=== PATIENT | female | born 1955 | race Caucasian/White ===

== ENCOUNTER 2016-08-14 10:45 | Emergency (ER) | payer SELFPAY ==
[~2016-08-14] VITALS: Ht 175.3 cm; Wt 63.0 kg
[~2016-08-14 10:45] MED LIST: ASP81TEC PO; CEPH-38 PO; CHOLECALCIFEROL PO; DICL50TA3 PO; FISH OIL PO; LEVO500T69 PO; LVT.025T PO; MEPE50TA PO; MULT-608 PO; ONDAN4ODT PO; PANT40SU PO
[2016-08-14] MEDS ORDERED: ASPIRIN 81 MG CHEW (CHILDREN'S ASA) ONE (10:49)
[2016-08-14] MEDS ORDERED: RX-NITROGLYCERIN 0.4 MG TAB BTL 25'S SL ONE (10:53)
[2016-08-14 10:59] LABS: BASOPHILS # (AUTO) 0.1 10^3/uL (0.0-0.1); BASOPHILS % (AUTO) 1 % (0-10); EOSINOPHILS # (AUTO) 0.5 10^3/uL (0.0-0.3); EOSINOPHILS % (AUTO) 6 % (0-10); LYMPHOCYTES # (AUTO) 2.6 X 10^3 (1.0-4.0); LYMPHOCYTES % (AUTO) 33 % (12-44); MEAN CORPUSCULAR HEMOGLOBIN 30 PG (25-34); MEAN CORPUSCULAR HGB CONC 34 G/DL (32-36); MEAN CORPUSCULAR VOLUME 91 FL (80-99); MEAN PLATELET VOLUME 9.5 FL (7.4-10.4); MONOCYTES # (AUTO) 0.9 X 10^3 (0.0-1.0); MONOCYTES % (AUTO) 11 % (0-12); NEUTROPHILS # (AUTO) 3.9 X 10^3 (1.8-7.8); NEUTROPHILS % (AUTO) 49 % (42-75); PLATELET COUNT 288 10^3/uL (130-400); RED BLOOD COUNT 4.94 10^6/uL (4.35-5.85); RED CELL DISTRIBUTION WIDTH 13.2 % (10.0-14.5); WHITE BLOOD COUNT 8.1 10^3/uL (4.3-11.0)
[2016-08-14] MEDS ORDERED: LABETALOL HCL 20 MG/4 ML VIAL ONE (10:59)
[2016-08-14] MEDS ORDERED: ONDANSETRON 4 MG/2 ML (SDV) Z0FRAN ONE (11:04)
[2016-08-14 11:08] LABS: INR 0.9 (0.8-1.4)
--- NOTE | 2016-08-14 11:10 | ED Chest Pain ---
General Stated Complaint: CP Source: patient Exam Limitations: no limitations History of Present Illness Time seen by provider: 11:07 Initial Comments To ER with reports of "my heart is going to beat out of my chest". This awakened her from sleep this morning at 630. She has never had these symptoms before. She feels very anxious. She denies any personal history of heart disease but states that her grandfather did have heart disease. She is a nonsmoker. She is noted to be in bigeminy upon arrival with a rate of 100-105. 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 Home Medications Levothyroxine Sodium 25 Mcg Tab, 75 MCG PO DAILY, (Reported) Metoprolol Succinate 25 Mg Tab.er.24h, 25 MG PO DAILY, #20 Prescribed by: VALERIE LINDER on 08/14/16 1153 Review of Systems Constitutional: see HPI, No chills EENTM: No Symptoms Reported Respiratory: No Symptoms Reported Cardiovascular: See HPI, Chest Pain, Lightheadedness, Palpitations Gastrointestinal: See HPI, Nausea Genitourinary: No Symptoms Reported Musculoskeletal: no symptoms reported Skin: no symptoms reported Psychiatric/Neurological: No Symptoms Reported Endocrine: No Symptoms Reported Past Ghffvip-Pkbehe-Eovica Hx Patient Social History Recent Foreign Travel: No Contact w/Someone Who Travel: No Seasonal Allergies Seasonal Allergies: No Surgeries HX Surgeries: Yes (Sinus 08/2011; Foot 11/2010; Rt Knee Scope Vaginal Hysterectomy A/P REPAIR) Surgeries: Hysterectomy Respiratory Hx Respiratory Disorders: No Cardiovascular Hx Cardiac Disorders: No Neurological Hx Neurological Disorders: Yes Reproductive System Hx Reproductive Disorders: No Sexually 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 Disease: 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 Genitourinary Hx Genitourinary Disorders: No Gastrointestinal Hx Gastrointestinal Disorders: No Musculoskeletal Hx Musculoskeletal Disorders: No Endocrine Hx Endocrine Disorders: Yes Endocrine Disorders: Hypothyroidsim HEENT HX ENT Disorders: No Cancer Hx Cancer: No Psychosocial Hx Psychiatric Problems: No Integumentary HX Skin/Integumentary Disorder: No Blood Transfusions Hx Blood Disorders: No Family Medical History Significant Family History: Heart Disease, Diabetes Physical Exam Vital Signs Vital Sign - Last 12Hours 08/14/16 10:45 Temp 97.9 Pulse 104 Resp 28 B/P (MAP) 149/96 Capillary Refill : General Appearance: No Apparent Distress, WD/WN, Anxious HEENT: PERRL/EOMI, TMs Normal Neck: Full Range of Motion, Normal Inspection Respiratory: Normal Breath Sounds, No Accessory Muscle Use, No Respiratory Distress Cardiovascular: Regular Rate, Rhythm, Normal Peripheral Pulses Gastrointestinal: Normal Bowel Sounds, Non Tender, Soft Extremity: Normal Capillary Refill, Normal Inspection Neurologic/Psychiatric: Alert, Oriented x3, No Motor/Sensory Deficits Skin: Normal Color, Warm/Dry Progress/Results/Core Measures Results/Orders Lab Results Laboratory Tests Test 08/14/16 10:54 08/14/16 13:05 Range/Units White Blood Count 8.1 4.3-11.0 10^3/uL Red Blood Count 4.94 4.35-5.85 10^6/uL Hemoglobin 15.0 11.5-16.0 G/DL Hematocrit 45 35-52 % Mean Corpuscular Volume 91 80-99 FL Mean Corpuscular Hemoglobin 30 25-34 PG Mean Corpuscular Hemoglobin Concent 34 32-36 G/DL Red Cell Distribution Width 13.2 10.0-14.5 % Platelet Count 288 130-400 10^3/uL Mean Platelet Volume 9.5 7.4-10.4 FL Neutrophils (%) (Auto) 49 42-75 % Lymphocytes (%) (Auto) 33 12-44 % Monocytes (%) (Auto) 11 0-12 % Eosinophils (%) (Auto) 6 0-10 % Basophils (%) (Auto) 1 0-10 % Neutrophils # (Auto) 3.9 1.8-7.8 X 10^3 Lymphocytes # (Auto) 2.6 1.0-4.0 X 10^3 Monocytes # (Auto) 0.9 0.0-1.0 X 10^3 Eosinophils # (Auto) 0.5 H 0.0-0.3 10^3/uL Basophils # (Auto) 0.1 0.0-0.1 10^3/uL Prothrombin Time 12.0 L 12.2-14.7 SEC INR Comment 0.9 0.8-1.4 Activated Partial Thromboplast Time 25 24-35 SEC D-Dimer 0.36 0.00-0.49 UG/ML Sodium Level 139 135-145 MMOL/L Potassium Level 3.3 L 3.6-5.0 MMOL/L Chloride Level 106 98-107 MMOL/L Carbon Dioxide Level 23 21-32 MMOL/L Anion Gap 10 5-14 MMOL/L Blood Urea Nitrogen 12 7-18 MG/DL Creatinine 0.71 0.60-1.30 MG/DL Estimat Glomerular Filtration Rate > 60 BUN/Creatinine Ratio 17 Glucose Level 109 H 70-105 MG/DL Calcium Level 9.7 8.5-10.1 MG/DL Magnesium Level 2.4 1.8-2.4 MG/DL Total Bilirubin 0.4 0.1-1.0 MG/DL Aspartate Amino Transf (AST/SGOT) 31 5-34 U/L Alanine Aminotransferase (ALT/SGPT) 39 0-55 U/L Alkaline Phosphatase 128 40-136 U/L Myoglobin 18.2 10.0-92.0 NG/ML Troponin I < 0.30 < 0.30 <0.30 NG/ML Total Protein 9.3 H 6.4-8.2 GM/DL Albumin 4.3 3.2-4.5 GM/DL Thyroid Stimulating Hormone (TSH) 3.81 0.35-4.94 UIU/ML Free Thyroxine 1.06 0.70-1.48 NG/DL My Orders Orders - VALERIE LINDER APRN Cbc With Automated Diff (08/14/16 10:49) Magnesium (08/14/16 10:49) Chest 1 View, Ap/Pa Only (08/14/16 10:49) Ekg Tracing (08/14/16 10:49) Cardiac Profile 1 (08/14/16 10:49) Comprehensive Metabolic Panel (08/14/16 10:49) Myoglobin Serum (08/14/16 10:49) Protime With Inr (08/14/16 10:49) Partial Thromboplastin Time (08/14/16 10:49) O2 (08/14/16 10:49) Monitor-Rhythm Ecg Trace Only (08/14/16 10:49) Saline Lock/Iv-Start (08/14/16 10:49) Thyroid Stimulating Hormone (08/14/16 11:05) Free T4 (Free Thyroxine) (08/14/16 11:05) Metoprolol Tartrate Injection (Lopressor (08/14/16 11:15) Ns Iv 1000 Ml (Sodium Chloride 0.9%) (08/14/16 11:15) Alprazolam Tablet (Xanax Tablet) (08/14/16 11:15) Ondansetron Injection (Zofran Injectio (08/14/16 11:04) Fibrin Degradation Products (08/14/16 10:54) Labetalol Injection (Normodyne Injection (08/14/16 11:30) Lorazepam Injection (Ativan Injection) (08/14/16 12:15) Troponin I (08/14/16 12:55) Medications Given in ED Current Medications Medications Dose Ordered Sig/Temitope Route Start Time Stop Time Status Last Admin Dose Admin Aspirin 81 mg STK-MED ONCE .ROUTE 08/14/16 10:49 08/14/16 10:54 DC 08/14/16 11:17 81 MG Labetalol HCl 5 mg ONCE ONCE IV 08/14/16 11:30 08/14/16 11:31 DC 08/14/16 11:05 5 MG Nitroglycerin 0.4 mg STK-MED ONCE SL 08/14/16 10:53 08/14/16 10:59 DC 08/14/16 10:59 0.4 MG Ondansetron HCl 4 mg STK-MED ONCE .ROUTE 08/14/16 11:04 08/14/16 11:10 DC 08/14/16 11:10 4 MG Vital Signs/I&O Vital Sign - Last 12Hours 08/14/16 08/14/16 08/14/16 08/14/16 10:45 10:45 10:45 15:02 Temp 97.9 Pulse 104 76 Resp 28 28 B/P (MAP) 149/96 Pulse Ox 98 98 O2 Delivery Nasal Cannula Nasal Cannula Nasal Cannula Nasal Cannula O2 Flow Rate 2.00 2.0 2.00 2.00 Progress Note : Progress Note 1311- I discussed the case with Dr. Delgado. Review the EKG. Labs are unremarkable. Patient feels much better at this time sinus rhythm at 70s to 80s without ectopy after 5 mg of labetalol. Blood pressure 120s over 70s. We will repeat troponin, if still negative discharge to home with follow-up with Dr. Delgado this week, place her on metoprolol succinate. Diagnostic Imaging Diagonstic Imaging: Xray Plain Films/CT/US/NM/MRI: chest Comments NAME: JARAD ACOSTA [facility] REC#: [id number] PT STATUS: REG ER : 1955 PHYSICIAN: VALERIE LINDER APRN ADMIT DATE: 08/14/16/ER Draft Date of Exam:08/14/16 CHEST 1 VIEW, AP/PA ONLY INDICATION: Chest pain. COMPARISON: Comparison with 09/05/2012. FINDINGS: Portable chest shows the lungs to be clear. Heart is not enlarged. No pulmonary edema. No pneumothorax or pleural effusion. IMPRESSION: Normal portable chest. Dictated on workstation # [id number] Dict: 08/14/16 1143 Trans: 08/14/16 1145 [id number] Interpreted by: ANIVAL OLMOS MD Electronically signed by: Departure Communication Progress Notes 1151-patient was given 5 mg of labetalol IV with significant reduction in the frequency of PVCs. Symptoms improved. Impression Impression: Primary Impression: Chest pain Additional Impressions: Palpitations Frequent PVCs Disposition: 01 HOME, SELF-CARE Condition: Improved Decision to Admit Reason: Admit from ER (General) Departure-Patient Inst. Decision time for Depature: 11:52 Referrals: Josef DELGADO MD NO,LOCAL PHYSICIAN (PCP) Primary Care Physician Patient Instructions: Palpitations (DC) Add. Discharge Instructions: 1. Call Dr. Delgado's office tomorrow and make an appointment to be seen 2. Return to ER for any concerns 3. Reduce the caffeine in your diet. Medication as directed Scripts Metoprolol Succinate (Toprol Xl) 25 Mg Tab.er.24h 25 MG PO DAILY, #20 TAB Prov: VALERIE LINDER APRN 08/14/16 VALERIE LINDER APRN Aug 14, 2016 11:10
[2016-08-14] MEDS ORDERED: ALPRAZolam 0.25 MG (XANAX) TAB PO ONE (11:15)
[2016-08-14] MEDS ORDERED: meTOprolol 5 MG/5 ML (LOPRESSOR) VIAL IV ONE (11:15)
[2016-08-14] MEDS ORDERED: NS IV 1000 ML 1,000 ML IV SCH (11:15)
[2016-08-14 11:16] LABS: ALANINE AMINOTRANSFERASE 39 U/L (0-55); ALBUMIN 4.3 GM/DL (3.2-4.5); ANION GAP 10 MMOL/L (5-14); ASPARTATE AMINO TRANSFERASE 31 U/L (5-34); BILIRUBIN,TOTAL 0.4 MG/DL (0.1-1.0); BLOOD UREA NITROGEN 12 MG/DL (7-18); BUN/CREATININE RATIO 17; CALCIUM 9.7 MG/DL (8.5-10.1); CARBON DIOXIDE 23 MMOL/L (21-32); CHLORIDE 106 MMOL/L (98-107); CREATININE SERUM 0.71 MG/DL (0.60-1.30); GFR ESTIMATED > 60; GLUCOSE 109 MG/DL (70-105); MAGNESIUM 2.4 MG/DL (1.8-2.4); POTASSIUM 3.3 MMOL/L (3.6-5.0); SODIUM 139 MMOL/L (135-145); TOTAL PROTEIN 9.3 GM/DL (6.4-8.2)
[2016-08-14 11:23] LABS: MYOGLOBIN SERUM 18.2 NG/ML (10.0-92.0)
[2016-08-14] MEDS ORDERED: LABETALOL HCL 20 MG/4 ML VIAL IV ONE (11:30)
--- NOTE | 2016-08-14 11:45 | Diagnostic Imaging Report ---
INDICATION: Chest pain. COMPARISON: Comparison with 09/05/2012. FINDINGS: Portable chest shows the lungs to be clear. Heart is not enlarged. No pulmonary edema. No pneumothorax or pleural effusion. IMPRESSION: Normal portable chest. Dictated by: Dictated on workstation # [id number]
[2016-08-14 11:47] LABS: THYROID STIMULATING HORMONE 3.81 UIU/ML (0.35-4.94)
[2016-08-14] MEDS ORDERED: METO-351 PO (11:53)
[2016-08-14] MEDS ORDERED: LORazepam INJ 2 MG/ML (ATIVAN) VIAL IVP ONE (12:15)
[2016-08-14 15:02] VITALS: BP 123/77
--- OUTSIDE RECORDS SUMMARY | 2016-08-17 13:19 | XMS REPORT | Continuity of Care Document ---
Author Author [facility] Organization [facility] Address Unknown Phone Unavailable Care Team Providers Care Chips Screen Tender Name Role Phone Self, Referral PCP Unavailable Source Comments Some departments are not documenting in the electronic medical record. If you do not see the information that you expected, contact Release of Information in the Health Information Management department at [phone] for further assistance in locating additional records.[facility] Active Allergies and Adverse Reactions Allergen Noted Date Severity Reactions Comments Codeine 11/06/2012 HIVES Macrobid 11/06/2012 ANAPHYLAXIS Current Medications Prescription Sig. Disp. Refills Start End Date Status Date LEVOTHYROXINE SODIUM Take by mouth. Active (SYNTHROID PO) aspirin 81 mg chewable Take 81 mg by mouth Active tablet daily. MONTELUKAST SODIUM Take by mouth. Active (SINGULAIR PO) Active Problems Problem Noted Date Hallux rigidus 11/11/2012 Social History Tobacco Use Types Packs/Day Years Used Date Never Smoker Smokeless Tobacco: Never Used Last Filed Vital Signs Vital Sign Reading Time Taken Blood Pressure 124/85 11/06/2012 10:10 AM CDT Pulse 67 11/06/2012 10:10 AM CDT Temperature - - Respiratory Rate - - Height 1.753 m (5' 9") 11/06/2012 10:10 AM CDT Weight 67.586 kg (149 lb) 11/06/2012 10:10 AM CDT Body Mass Index 21.99 11/06/2012 10:10 AM CDT Oxygen Saturation - - Plan of Care Health Maintenance Due Date Last Done Comments Hepatitis C Screening 1955 Physical (Comprehensive) 1964 Exam Pertussis Vaccine 1968 Tetanus Vaccine 1974 Cervical Cancer Screening 1978 Breast Cancer Screening 1997 Colorectal Cancer 06/23/2007 Screening Influenza Vaccine 10/14/2016 Results from Last 3 Months Not on file
== END 2016-08-14 13:58 | disposition home or self-care (01) ==
LOC: EDUNIT# 10:45 → ER 10:47
DX: R07.9 Chest pain, unspecified (principal); R00.2 Palpitations; I49.3 Ventricular premature depolarization; E03.9 Hypothyroidism, unspecified
CPT/HCPCS: 36415; 71010; 80053; 83735; 83874; 84439; 84443; 84484; 85025; 85379; 85610; 85730; 93005; 93041; 96361; 96374; 96375

== ENCOUNTER → 2021-04-28 | Outpatient (CLI) | payer BC ==
[~2021-04-28] MED LIST changes: +METO-351 PO
--- NOTE | 2021-04-28 13:48 | Diagnostic Imaging Report ---
PROCEDURE: US right lower extremity venous. TECHNIQUE: Multiple real-time grayscale images were obtained over the right lower extremity in various projections. Additional spectral analysis and color Doppler duplex images were also obtained. INDICATION: Pain and swelling. COMPARISON: 12/29/2013. FINDINGS: Normal flow, compression, and augmentation within the visualized deep venous structures of the right lower extremity. IMPRESSION: No evidence of deep venous thrombosis within the right lower extremity. Dictated by: Dictated on workstation # [id number]
== END ==
LOC: RAD 12:30
PROVIDERS: ATTEND Nurse Practitioner Family
DX: I82.401 Acute embolism and thrombosis of unspecified deep veins of right lower extremity (principal)

== ENCOUNTER 2021-07-18 16:02 | Emergency (ER) | payer BC ==
[~2021-07-18] VITALS: Ht 175.3 cm; Wt 68.0 kg
[2021-07-18 16:52] LABS: BASOPHILS % (AUTO) 0 % (0-10); EOSINOPHILS % (AUTO) 0 % (0-10); HEMATOCRIT 42 % (35-52); HEMOGLOBIN 14.3 g/dL (11.5-16.0); LYMPHOCYTES # (AUTO) 1.1 10^3/uL (1.0-4.0); LYMPHOCYTES % (AUTO) 14 % (12-44); MEAN CORPUSCULAR HEMOGLOBIN 31 pg (25-34); MEAN CORPUSCULAR HGB CONC 34 g/dL (32-36); MEAN CORPUSCULAR VOLUME 90 fL (80-99); MEAN PLATELET VOLUME 9.8 fL (9.0-12.2); MONOCYTES # (AUTO) 0.2 10^3/uL (0.0-1.0); MONOCYTES % (AUTO) 3 % (0-12); NEUTROPHILS % (AUTO) 82 % (42-75); PLATELET COUNT 294 10^3/uL (130-400); WHITE BLOOD COUNT 7.3 10^3/uL (4.3-11.0)
[2021-07-18] MEDS ORDERED: DIAZEPAM INJ 10 MG/2 ML (VALIUM) SYR IVP STA (16:52)
--- NOTE | 2021-07-18 16:52 | ED General ---
General Chief Complaint: Cardiac/General Problems Stated Complaint: DIZZINESS, HIGH HEART RATE Nursing Triage Note: PT AMB TO RM 7 WITH COMPLAINT OF DIZZINESS, SWEATING, PALPITATIONS. 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 PT STATES SHE IS CURRENTLY TAKING DOXYCYCLINE FOR A TICK BITE. Source of Information: Patient, Family Exam Limitations: No Limitations (SABRINA CHRISTINE MD) History of Present Illness Date Seen by Provider: Jul 18, 2021 Time Seen by Provider: 16:30 Initial Comments Patient is a 66-year-old female who presents to the emergency room today with a chief complaint of feeling suddenly dizzy, profuse diaphoresis, palpitations and near [place]. 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 She felt like she was going to pass out. She felt the need to cover her left eye so that she could see a little bit more straight. She has a mild frontal headache currently this is developed since those symptoms. She is still occasionally experiencing "palpitations" and looking at the monitor she is having occasional PVCs. She has no history of coronary artery disease or CHF. She her only medical history is hypothyroidism. She states that she has had food today and been drinking water. She is currently on doxycycline since last Monday for a tick bite that caused a large rash to her inner thigh last week. No recent fevers, chills, productive cough or URI symptoms. No urinary complaints or diarrhea. She has never been a smoker. She does have a family history in her mom of cerebral aneurysm. 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 Patient Home Medication List Home Medication List Reviewed: Yes (SABRINA CHRISTINE MD) Levothyroxine Sodium (Levothroid) 25 Mcg Tab, 75 MCG PO DAILY, (Reported) Entered as Reported by: LUPE HUIZAR on 11/15/10 0933 Metoprolol Succinate (Toprol Xl) 25 Mg Tab.er.24h, 25 MG PO DAILY Prescribed by: VALERIE LINDER on 08/14/16 1153 Review of Systems Review of Systems Constitutional: see HPI EENTM: other ("blurry vision" now resolved) Respiratory: no symptoms reported Cardiovascular: palpitations Gastrointestinal: no symptoms reported Genitourinary: no symptoms reported : No Musculoskeletal: no symptoms reported Skin: other (diaphoresis) Psychiatric/Neurological: Other (increased recent stress) (SABRINA CHRISTINE MD) All Other Systems Reviewed Negative Unless Noted: Yes (SABRINA CHRISTINE MD) Past Worbvfl-Utgcak-Lmiiaz Hx Patient Social History Tobacco Use?: No Use of E-Cig and/or Vaping dev: No Substance use?: No Alcohol Use?: No Pt feels they are or have been: No (SABRINA CHRISTINE MD) Seasonal Allergies Seasonal Allergies: No (SABRINA CHRISTINE MD) Past Medical History Surgeries: Yes (Sinus 08/2011; Foot 11/2010; Rt Knee Scope Vaginal Hysterectomy A/P REPAIR) Hysterectomy Respiratory: No Cardiac: No Neurological: Yes Reproductive Disorders: No 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 oz. 63.891401ls; 22.00 BMI Method:Stated General Appearance: WD/WN, Anxious Eyes: Bilateral Eye Normal Inspection, Bilateral Eye PERRL, Bilateral Eye EOMI HEENT: PERRL/EOMI, TMs Normal, Normal ENT Inspection, Pharynx Normal, Moist Mucous Membranes Neck: Full Range of Motion, Normal Inspection, Non Tender, Supple Respiratory: Lungs Clear, Normal Breath Sounds, No Accessory Muscle Use, No Respiratory Distress Cardiovascular: Regular Rate, Rhythm, Normal Peripheral Pulses, Systolic Murmur (2-3/6 systolic ejection murmur) Gastrointestinal: Normal Bowel Sounds, Non Tender, Soft Extremity: Normal Inspection, Normal Range of Motion, Non Tender, No Calf Tenderness Neurologic/Psychiatric: Alert, Oriented x3, No Motor/Sensory Deficits, Normal Mood/Affect, vacuum tester cans II-XII Norm as Tested, Other (Normal sbylhf-hq-zpqz however the patient exhibits profound symptoms of vertigo when looking far off to the right; normal ujks-cr-hclw. Negative Romberg. She does have nystagmus when looking to the right but cannot tolerate any sustained rightward gaze without becoming profoundly) Skin: Normal Color, Warm/Dry (SABRINA CHRISTINE MD) Neurologic/Psychiatric: Other (Normal mixbdz-ph-jywy however the patient exhibits profound symptoms of vertigo when looking far off to the right; normal zrab-nw-ephf. Negative Romberg. She does have nystagmus when looking to the right but cannot tolerate any sustained rightward gaze without becoming profoundly) (CHIRAG NUGENT DO) Progress/Results/Core Measures Suspected Sepsis SIRS Temperature: Pulse: 90 Respiratory Rate: 24 Laboratory Tests 07/18/21 16:15: White Blood Count 7.3 Blood Pressure 137 /94 Mean: 108 Laboratory Tests 07/18/21 16:15: Creatinine 0.69, Platelet Count 294 (SABRINA CHRISTINE MD) Results/Orders Lab Results Laboratory Tests Test 07/18/21 16:15 Range/Units White Blood Count 7.3 4.3-11.0 10^3/uL Red Blood Count 4.68 3.80-5.11 10^6/uL Hemoglobin 14.3 11.5-16.0 g/dL Hematocrit 42 35-52 % Mean Corpuscular Volume 90 80-99 fL Mean Corpuscular Hemoglobin 31 25-34 pg Mean Corpuscular Hemoglobin Concent 34 32-36 g/dL Red Cell Distribution Width 12.9 10.0-14.5 % Platelet Count 294 130-400 10^3/uL Mean Platelet Volume 9.8 9.0-12.2 fL Immature Granulocyte % (Auto) 0 % Neutrophils (%) (Auto) 82 H 42-75 % Lymphocytes (%) (Auto) 14 12-44 % Monocytes (%) (Auto) 3 0-12 % Eosinophils (%) (Auto) 0 0-10 % Basophils (%) (Auto) 0 0-10 % Neutrophils # (Auto) 6.0 1.8-7.8 10^3/uL Lymphocytes # (Auto) 1.1 1.0-4.0 10^3/uL Monocytes # (Auto) 0.2 0.0-1.0 10^3/uL Eosinophils # (Auto) 0.0 0.0-0.3 10^3/uL Basophils # (Auto) 0.0 0.0-0.1 10^3/uL Immature Granulocyte # (Auto) 0.0 0.0-0.1 10^3/uL Sodium Level 138 135-145 MMOL/L Potassium Level 4.4 3.6-5.0 MMOL/L Chloride Level 105 98-107 MMOL/L Carbon Dioxide Level 20 L 21-32 MMOL/L Anion Gap 13 5-14 MMOL/L Blood Urea Nitrogen 16 7-18 MG/DL Creatinine 0.69 0.60-1.30 MG/DL Estimat Glomerular Filtration Rate 97 BUN/Creatinine Ratio 23 Glucose Level 157 H 70-105 MG/DL Calcium Level 9.4 8.5-10.1 MG/DL Troponin I < 0.028 <0.028 NG/ML (INDERJIT,CHIRAG K DO) My Orders Orders - CHIRAG NUGENT DO Iohexol Injection (Omnipaque 350 Mg/Ml 1 (07/18/21 18:00) Received Contrast (Hold Metformin- Contr (07/18/21 18:00) Ns (Ivpb) (Sodium Chloride 0.9% Ivpb Bag (07/18/21 18:00) Aspirin Chewable Tablet (Baby Aspirin Ch (07/18/21 19:30) (INDERJIT,CHIRAG K DO) Medications Given in ED Current Medications Medications Dose Ordered Sig/Temitope Route Start Time Stop Time Status Last Admin Dose Admin Iohexol 100 ml ONCE ONCE IV 07/18/21 18:00 07/18/21 18:01 DC 07/18/21 18:27 75 ML Ketorolac Tromethamine 15 mg ONCE ONCE IVP 07/18/21 18:00 07/18/21 18:01 DC 07/18/21 18:05 15 MG Ondansetron HCl 4 mg ONCE ONCE IVP 07/18/21 17:00 07/18/21 17:01 DC 07/18/21 17:04 4 MG Sodium Chloride 100 ml ONCE ONCE IV 07/18/21 18:00 07/18/21 18:01 DC 07/18/21 18:27 100 ML (CHIRAG NUGENT DO) Vital Signs/I&O 07/18/21 16:07 Pulse 90 Resp 24 B/P (MAP) 137/94 (108) Pulse Ox 98 O2 Delivery Room Air (CHIRAG NUGENT DO) Vital Signs/I&O Capillary Refill : Less Than 3 Seconds (SABRINA CHRISTINE MD) Blood Pressure Mean: 108 Progress Note : Time: 17:53 Progress Note Reevaluated after labs and CT, I was able to encourage her and get her to look all the way to the left. Extraocular muscles are indeed intact however she develops diplopia with forced right gaze deviation. I am going to go ahead and do CT angio secondary to this as well as family history of cerebral aneurysm.. We will give her little Toradol as well as normal saline fluid bolus. Disposition pending at the time of shift change, Care passed to Dr Nugent. (SABRINA CHRISTINE MD) Progress Note : Progress Note 1800--ASSUMED CARE FROM DR. CHRISTINE, CT ANGIOGRAM OF HEAD AND LAB PENDING (CHIRAG NUGENT DO) ECG Initial ECG Impression Date: Jul 18, 2021 Initial ECG Impression Time: 16:16 Initial ECG Rate: 85 Initial ECG Rhythm: Normal Sinus Initial ECG Intervals WI interval 208 ms Q RS 80 ms QTc 370 ms Initial ECG Impression: Normal (SABRINA CHRISTINE MD) Diagnostic Imaging Diagonstic Imaging: CT Comments [facility] [place] NAME: JARAD ACOSTA MED REC#: [id number] PT STATUS: REG ER : 1955 PHYSICIAN: SABRINA CHRISTINE MD ADMIT DATE: 07/18/21/ER Draft Date of Exam:07/18/21 CT HEAD WO PROCEDURE: CT head without contrast. TECHNIQUE: Multiple contiguous axial images were obtained through the brain without the use of intravenous contrast. Auto Exposure Controls were utilized during the CT exam to meet ALARA standards for radiation dose reduction. INDICATION: Syncope, left eye pressure. FINDINGS: The ventricles are normal in size, shape and position. There are no masses or hemorrhages. There are no extra-axial fluid collections. Globes and orbits appear normal. IMPRESSION: Negative CT head. Dictated on workstation # [id number] Dict: 07/18/21 1735 Trans: 07/18/21 173 [facility] [id number] Interpreted by: PRESTON PARSONS MD Electronically signed by: (SABRINA CHRISTINE MD) Comments CT ANGIOGRAM HEAD--PER RADIOLOGIST REPORT AT 1903 CTA HEAD: Thin axial sections through the head were obtained following an intravenous contrast bolus. Multiplanar MIP images were reconstructed and reviewed. Dose lowering technique was used. Postcontrast images of the brain do not show any abnormal areas of enhancement. There is no evidence of aneurysm, arterial venous malformation or large vessel occlusion. IMPRESSION: Unremarkable CTA head. Reviewed: Reviewed by Me (CHIRAG NUGENT DO) Departure Impression Primary Impression: Diplopia Additional Impressions: Dizziness Headache Disposition: [facility] Condition: Stable Transfer Transfer Reason: Exceeds level of care Transfer Facility: Method of Transfer: EMS (CHIRAG NUGENT DO) Departure-Patient Inst. Referrals: NO,LOCAL PHYSICIAN (PCP/Family) Primary Care Physician SABRINA CHRISTINE MD Jul 18, 2021 16:52 CHIRAG NUGENT DO Jul 18, 2021 17:59
[2021-07-18 16:57] LABS: CALCIUM 9.4 MG/DL (8.5-10.1); POTASSIUM 4.4 MMOL/L (3.6-5.0)
[2021-07-18] MEDS ORDERED: ONDANSETRON 4 MG/2 ML (SDV) Z0FRAN IVP ONE (17:00)
[2021-07-18 17:01] LABS: CREATININE SERUM 0.69 MG/DL (0.60-1.30)
--- NOTE | 2021-07-18 17:39 | Diagnostic Imaging Report ---
PROCEDURE: CT head without contrast. TECHNIQUE: Multiple contiguous axial images were obtained through the brain without the use of intravenous contrast. Auto Exposure Controls were utilized during the CT exam to meet ALARA standards for radiation dose reduction. INDICATION: Syncope, left eye pressure. FINDINGS: The ventricles are normal in size, shape and position. There are no masses or hemorrhages. There are no extra-axial fluid collections. Globes and orbits appear normal. IMPRESSION: Negative CT head. Dictated by: Dictated on workstation # [id number]
[2021-07-18] MEDS ORDERED: HOLD METFORMIN - RECEIVED CONTRAST 20 ML VIAL IV SCH (18:00)
[2021-07-18] MEDS ORDERED: KETOROLAC 30 MG/ML VIAL IVP ONE (18:00)
[2021-07-18] MEDS ORDERED: NS 100 ML (IVPB) BAG IV ONE (18:00)
[2021-07-18] MEDS ORDERED: NS IV 1000 ML 1,000 ML IV SCH (18:00)
[2021-07-18] MEDS ORDERED: IOHEXOL 350 MG/ML 100 ML (OMNIPAQUE 350) VIAL IV ONE (18:00)
--- NOTE | 2021-07-18 18:52 | Diagnostic Imaging Report ---
INDICATION: Dizziness. CTA HEAD: Thin axial sections through the head were obtained following an intravenous contrast bolus. Multiplanar MIP images were reconstructed and reviewed. Dose lowering technique was used. Postcontrast images of the brain do not show any abnormal areas of enhancement. There is no evidence of aneurysm, arterial venous malformation or large vessel occlusion. IMPRESSION: Unremarkable CTA head. Dictated by: Dictated on workstation # [id number]
[2021-07-18] MEDS ORDERED: ASPIRIN 81 MG CHEW (CHILDREN'S ASA) PO ONE (19:30)
[2021-07-18 20:15] VITALS: BP 146/97
== END 2021-07-18 20:15 | disposition short-term general hospital (02) ==
LOC: EDUNIT# 16:02 → ER 16:04
DX: R42 Dizziness and giddiness (principal); R51.9 Headache, unspecified; H53.2 Diplopia; Z79.2 Long term (current) use of antibiotics
CPT/HCPCS: 36415; 70450; 70496; 80048; 84484; 85025; 93005

== ENCOUNTER 2022-04-25 05:32 | Outpatient (CLI) | payer BC ==
[~2022-04-25] VITALS: Ht 175.3 cm; Wt 74.4 kg
== END 2022-04-25 12:44 | disposition home or self-care (01) ==
LOC: PREOP 05:32
PROVIDERS: ATTEND Internal Medicine
DX: Z01.818 Encounter for other preprocedural examination (principal)

== ENCOUNTER 2022-04-29 07:29 | Day surgery (SDC) | payer BC ==
--- NOTE | 2022-04-25 07:53 | HISTORY AND PHYSICAL ---
DATE OF SERVICE: 04/29/2022 COLONOSCOPY HISTORY AND PHYSICAL HISTORY OF PRESENT ILLNESS: The patient is a 66-year-old white female referred by Dr. Isiah Frost at the [facility] for screening colonoscopy. She had one other screening colonoscopy around the age of 52 for which she was told she had some diverticulum, but no evidence for polyps that she recalls. She is deemed to be of average risk because she is not aware of any family history for colon cancer or colon polyps. She denies melena or bright red blood per rectum, change in bowel habit or change in weight. 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 She takes 100 mcg of L-thyroxine and is on no other medication. PAST SURGICAL HISTORY: She had a total abdominal hysterectomy for apparent hypermenorrhagia over 20 years ago, ovaries were left. She had a laparoscopic cholecystectomy over 10 years ago and has had a past right knee arthrocentesis with meniscal repair. 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 FAMILY HISTORY: Father of complications of Alzheimer disease at the age of 88. Mother of ruptured brain aneurysm at the age of 74, had one brother who of ALS in his 50s and has 5 other siblings that are alive and well. REVIEW OF SYSTEMS: CONSTITUTIONAL: Denies night sweats, chills, fever or change in weight. PULMONARY: Denies cough, wheezing or shortness of breath. CARDIOVASCULAR: Denies orthopnea, PND, pedal edema, chest discomfort or dyspnea on exertion. GASTROINTESTINAL: As noted in the HPI. PHYSICAL EXAMINATION: GENERAL: Reveals a pleasant, well-appearing white female in no acute distress. VITAL SIGNS: Weight 164 pounds, blood pressure 112/80. HEENT: Unremarkable. CHEST: Clear. CARDIOVASCULAR: Reveals a regular rate and rhythm without murmur, S3, or S4. ABDOMEN: Soft, supple without mass, organomegaly, or tenderness. EXTREMITIES: Revealed no cyanosis, clubbing or edema. Prep instructions were given and questions were answered. Electronic medical record was reviewed. I thank you for the referral of this pleasant lady. Job ID: [id number] DocumentID: [id number] Dictated Date: 04/21/2022 15:59:57 Malter Operator Date: 04/21/2022 16:24:00 Dictated By: RADHA CARBAJAL MD
[~2022-04-29] VITALS: Ht 175 cm; Wt 74.4 kg
[2022-04-29] MEDS ORDERED: LACTATED RINGERS 1,000 ML IV STA (07:36)
[2022-04-29] MEDS ORDERED: LACTATED RINGERS 1,000 ML IV ONE (07:45)
[2022-04-29 07:48] VITALS: BP 139/94
--- NOTE | 2022-04-29 08:01 | Pre-Op Note & Conscious Sedat ---
Pre-Operative Progress Note Date H&P Reviewed: Apr 29, 2022 Time H&P Reviewed: 08:01 History & Physical: H&P Reviewed, Patient Examed, No changes noted Pre-Op Diagnosis: screening Moderate Sedation PreProcedure ASA Score 2 Airway Lungs Heart ASA score ASA 1: a normal healthy patient ASA 2: a patient with a mild systemic disease (mid diabetes, controlled hypertension, obesity ASA 3: a patient with a severe systemic disease that limits activity (angina, COPD, prior Myocardial infarction) ASA 4: a patient with an incapacitating disease that is a constant threat to life (CHF, renal failure) ASA 5: a moribund patient not expected to survive 24 hrs. (ruptured aneurysm) ASA 6: a declared brain- patient whose organs are being harvested. For emergent operations, add the letter E after the classification Mallampati Classification Grade 2 Sedation Plan Analgesia, Amnesia, Plan communicated to team members, Discussed options with patient/fam, Discussed risks with patient/fam The patient is an appropriate candidate to undergo the planned procedure, sedation, and anesthesia. The patient immediately re-assessed prior to indication. RADHA CARBAJAL MD Apr 29, 2022 08:01
[2022-04-29] MEDS ORDERED: PROPOFOL INJECTION 50 ML IV ONE (08:29)
[2022-04-29] MEDS ORDERED: MIDAZOLAM 2 MG/2 ML (VERSED) VIAL ONE (08:29)
[2022-04-29 08:55] VITALS: BP 97/56
[2022-04-29 09:00] VITALS: BP 100/60
--- NOTE | 2022-04-29 09:01 | Progress Note-Post Operative ---
Post-Procedure Note Physician (s)/Microstrategy Bi Developer (s) Physician RADHA CARBAJAL MD Pre-Procedure Diagnosis Pre-Procedure Diagnosis: screening Post-Procedure Diagnosis Post-operative diagnosis: Prior to undergoing colonoscopy digital rectal evaluation was performed. Anal sphincter tone was normal and the perianal reflexes intact. No abnormalities noted on digital inspection of the anal canal or distal rectal vault. The colonoscope was then inserted into the rectum and under direct visualization advanced to the cecum. The cecum was identified by identification of the ileocecal valve and cecal strap. Photographic documentation was obtained. Careful inspection was made as the colonoscope was withdrawn. Quality the prep was good. Findings: There was no evidence for internal or external hemorrhoids. The rectum was unremarkable. Moderate diverticular disease confined to the sigmoid colon was present without evidence for diverticulitis. The descending colon splenic flexure transverse colon hepatic flexure ascending colon and cecum were unremarkable. Assessment: Moderate diverticular disease confined to the sigmoid colon was present without evidence for diverticulitis. This was an otherwise normal colonoscopy to the cecum under good prep conditions. Would advocate consideration for repeat screening colonoscopy in 10 years. I thank you for the referal of this pleasant lady sincerely, Radha Carbajal MD. CC: Dr. Isiah Frost MD. RADHA CARBAJAL MD Apr 29, 2022 09:01
[2022-04-29 09:05] VITALS: BP 114/66
[2022-04-29 09:10] VITALS: BP 112/63
[2022-04-29 09:53] VITALS: BP 112/63
--- NOTE | 2022-04-29 10:31 | Anesthesia-General Post-Op ---
MAC Patient Condition Mental Status/LOC: Same as Preop Cardiovascular: Satisfactory Nausea/Vomiting: Absent Respiratory: Satisfactory Pain: Controlled Complications: Absent Post Op Complications Complications None Follow Up Care/Instructions Patient Instructions None needed. Anesthesiology Discharge Order Discharge Order Patient is doing well, no complaints, stable vital signs, no apparent adverse anesthesia problems. No complications reported per nursing. EVETTE CARNES CRNA Apr 29, 2022 10:31
== END 2022-04-29 09:47 | disposition home or self-care (01) ==
LOC: ENDO 07:29
PROVIDERS: ATTEND Internal Medicine
DX: Z12.11 Encounter for screening for malignant neoplasm of colon (principal); K57.30 Diverticulosis of large intestine without perforation or abscess without bleeding; Z28.310 Unvaccinated for COVID-19